=== PATIENT | male | born 2000 | race African-American/Black ===

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

== ENCOUNTER 2018-12-05 19:13 | Emergency (ER) | payer OTHER ==
[~2018-12-05] VITALS: Ht 175.3 cm; Wt 59.0 kg
[~2018-12-05 19:13] MED LIST: IBUPROFEN600 MG ORAL; NKM
[2018-12-05 19:27] VITALS: BP 136/71
--- NOTE | 2018-12-05 19:27 | NUR ---
Received with c/o left thumb pain s/p jamming it, playing basketball on Thursday. No obvious deformity;N/V intact distally.
--- NOTE | 2018-12-05 19:40 | Emergency Room Report ---
History of Present Illness General Chief Complaint: Upper Extremity Injury Source: Patient Present Illness HPI Disclaimer: Please note that this report is being documented using [employer] technology. This can lead to erroneous entry secondary to incorrect interpretation by the dictating instrument. HPI: 18-year-old otherwise healthy male presents for evaluation of left thumb pain after an injury. He was playing basketball when he had his hand jammed by another player having it hyperextended. He felt a pop and a click after which she noted tenderness over the MCPJ. Difficulty with flexion extension over the weekend however he has been keeping in a splint and icing. Pain is intermittent now and range of motion is returning. Brought in by his mother for evaluation. No other injury sustained. He denies pain in the wrist or limitation to range of motion in the wrist or any other injury sustained. Denies skin breakdown. PMH: Denies PSH: Denies Allergies: Denies Social Hx: Denies tobacco, alcohol or drug use Allergies: Coded Allergies: No Known Allergies (Unverified , 07/11/16) Nursing Documentation-PMH Past Medical History: No Stated History Review of Systems Constitutional: Reports: no symptoms Respiratory: Reports: no symptoms Cardiovascular: Reports: no symptoms Gastrointestinal: Reports: no symptoms Musculoskeletal: Reports: joint pain Physical Exam Vital Signs Date Time Temp Pulse Resp B/P (MAP) Pulse Ox O2 Delivery O2 Flow Rate FiO2 12/05/18 19:22 98.6 75 16 136/71 (92) 100 Room Air General: Awake and alert, no acute distress HEENT: NC/AT. EOMI. Resp: Normal work of breathing. Skin: Intact. No abrasions, laceration or rash over the exposed skin MSK: Normal tone and bulk. Moving all extremities. No obvious deformity. Mild tenderness over the dorsum of the MCP J on the left hand. Patient is able to flex and extend all digits of the right hand. Able to flex and extend the wrist without difficulty. No significant edema. Neuro: Awake and alert. Mentating appropriately. Sensation is intact over the radial and ulnar surface of all digits. Medical Decision Making ER Course 18-year-old male presents for evaluation of left thumb injury playing basketball 2 days ago. While my suspicion for fracture is low clinically, will obtain an x-ray as the patient's mother is very concerned. Likely, this is a sprain that is already begun healing. There is no tenderness in the anatomic snuffbox, significant edema or skin breakdown. Patient does not require pain medication at this time. I anticipate discharge home after x-rays. Other X-Ray Diagnostic Results Other X-Ray Diagnostic Results : X-Ray ordered: Left hand # of Views/Limited Vs Complete: 3 View Indication: Pain EP Interpretation: Yes Interpretation: no dislocation, no soft tissue swelling, no fractures Impression: No acute disease Electronically Signed by: Electronically signed by Dr. Gerhard Guardado Reevaluation Time: 20:26 Last Vital Signs Date Time Temp Pulse Resp B/P (MAP) Pulse Ox O2 Delivery O2 Flow Rate FiO2 12/05/18 19:22 98.6 75 16 136/71 (92) 100 Room Air Reevaluation Impression No obvious fracture on x-ray. Likely a sprain and the patient can continue wearing the splint as he desires for comfort. Discussed reasons to follow-up with his PMD or reasons to return to the emergency department with patient and his mother who is now present. They understand and agree with this treatment plan will be discharged home. Disposition: HOME, SELF-CARE Condition: Stable Gerhard Guardado MD Dec 05, 2018 19:40
[2018-12-05 20:34] VITALS: BP 136/71
--- NOTE | 2018-12-06 12:34 | Diagnostic Imaging Report ---
Indication: left hand pain. Comparison: None Findings: 3 views of the left hand were obtained. Normal alignment is demonstrated. No acute fractures, erosions, or periosteal reaction are seen. Soft tissues are unremarkable. Impression: No acute findings.
== END 2018-12-05 20:34 | disposition home or self-care (01) ==
LOC: EMR 20:15
DX: M25.542 Pain in joints of left hand (principal); S69.92XA Unspecified injury of left wrist, hand and finger(s), initial encounter; W51.XXXA Accidental striking against or bumped into by another person, initial encounter; Y93.67 Activity, basketball; Y92.9 Unspecified place or not applicable
CPT/HCPCS: 99283

== ENCOUNTER → 2019-06-01 | Emergency (ER) | payer MEDICAID ==
[~2019-06-01] VITALS: Ht 175.3 cm; Wt 63.5 kg
[2019-06-01 16:01] VITALS: BP 148/89
--- NOTE | 2019-06-01 18:59 | NUR ---
ED Nurse Note: Did not assess patient as pt did not want to be seen. Addendum: 06/01/19 at 1900 by EVA *left without being seen*
--- NOTE | 2019-06-18 21:33 | Emergency Room Report ---
History of Present Illness General Chief Complaint: Upper Extremity Injury Source: Patient Present Illness HPI 19-year-old male with unknown past medical history here complaining of left thumb pain after spraining it earlier today. Patient was seen in the waiting room, was called multiple times, however patient left before being seen. I was unable to see the patient therefore no physical examination was done. Chief complaint is based on notes from registration. Allergies: Coded Allergies: No Known Allergies (Unverified , 07/11/16) Patient History Past Medical History: see triage record Past Surgical History: unable to obtain Pertinent Family History: none Reviewed Nursing Documentation: PMH: Agreed; PSxH: Agreed Nursing Documentation-PMH Past Medical History: No Stated History Review of Systems All Other Systems: negative except mentioned in HPI Physical Exam No vital signs or physical examination was done as patient left before being seen Medical Decision Making PA Attestation All my diagnosis and treatment plans were reviewed ad discussed with my supervising physician Dr. Levine Diagnostic Impression: Primary Impression: Patient left without being seen ER Course 19-year-old male with unknown past medical history here complaining of left thumb pain after spraining it earlier today. Patient was seen in the waiting room, was called multiple times, however patient left before being seen. I was unable to see the patient therefore no physical examination was done. Chief complaint is based on notes from registration. Ddx considered but are not limited to : Finger sprain versus fracture versus strain Vital signs: are WNL, pt. is afebrile H&PE are most consistent with: Patient left without being seen ORDERS: Left finger x-ray was ordered however canceled as patient left without being seen ED INTERVENTIONS: None Patient left without being seen Disposition: LEFT W/OUT BEING SEEN Condition: Stable Referrals: NON PHYSICIAN (PCP) Kristopher Savage Jun 18, 2019 21:33
== END | disposition left against medical advice (07) ==
LOC: EMR 16:15
DX: Z53.21 Procedure and treatment not carried out due to patient leaving prior to being seen by health care provider (principal)